=== PATIENT | female | born 1955 | race Caucasian/White ===

== ENCOUNTER 2018-12-25 16:27 | Emergency (ER) | payer MEDICARE, BC ==
[2018-12-25 16:38] VITALS: PULSE 87; RESP 16; TEMP 99.3
[2018-12-25 16:41] VITALS: BP 168/94
--- NOTE | 2018-12-25 17:06 | ED ---
General Adult HPI - General Chief complaint: Eye Problems Stated complaint: Blood in eye Time Seen by Provider: 12/25/18 16:35 Source: patient, EMS, RN notes reviewed, old records reviewed Mode of arrival: EMS Limitations: no limitations - History of Present Illness Initial comments: This is a 63-year-old female presents emergency room stating that she was recently diagnosed with pulmonary embolism and DVT. Patient states she's on Lovenox at home and today while doing some typical housework she started having bleeding in her eye which she stated started a couple days ago but today got really significant to the point where the conjunctiva seems to be swollen and it is noticeable every time she blinks and she can feel some pressure there. Patient denies any visual disturbance patient denies any headache patient denies any numbness weakness. Patient denies any other problems aside from the sub- conjunctival hemorrhage. - Related Data Allergies Allergy/AdvReac Type Severity Reaction Status Date / Time Iodinated Contrast Media Allergy Rash/Hives Verified 12/25/18 16:38 Review of Systems ROS Statement: Those systems with pertinent positive or pertinent negative responses have been documented in the HPI. ROS Other: All systems not noted in ROS Statement are negative. 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 Patient is in mild distress. EYES Patient's pupils are equal and round. Extraocular motion is intact. Patient has a large subconjunctival hemorrhage in the left eye. Patient has no blurred vision SKIN Unremarkable NEURO The patient is alert and oriented 3 PYSCH Patient has normal interpersonal interactions. MUSCULOSKELETAL All 4 times and full range of motion. Limitations: no limitations Course Vital Signs 12/25/18 12/25/18 16:33 16:41 Temperature 99.3 F Pulse Rate 87 Respiratory 16 Rate Blood Pressure 185/10 168/94 O2 Sat by Pulse 98 Oximetry Medical Decision Making - Medical Decision Making I spoke with Dr. boyd he instructed me to put an eye patch on the patient and have her wear it over night so that she has some pressure otherwise it doesn't continue to get worse and he she will follow-up with him on Friday. Disposition Clinical Impression: Subconjunctival hemorrhage Disposition: HOME SELF-CARE Instructions (If sedation given, give patient instructions): Subconjunctival Hemorrhage (ED) Additional Instructions: Patient should follow-up with Dr. boyd on Friday patient should return to emergency department if patient has any visual complaints or any new symptoms. Is patient prescribed a controlled substance at d/c from ED?: No Referrals: Satish Rayo MD [Primary Care Provider] - 1-2 days Time of Disposition: 17:07
[2018-12-25] MEDS ORDERED: ERYTHROMYCIN 5 MG/GM OPHTH OINT 3.5 GM TUBE LEFT EYE STA (17:12)
== END 2018-12-25 17:35 | disposition home or self-care (01) ==
LOC: EC 16:27
DX: H11.32 Conjunctival hemorrhage, left eye (principal); Z91.041 Radiographic dye allergy status
CPT/HCPCS: 99284

== ENCOUNTER 2019-02-08 11:27 | Emergency (ER) | payer MEDICARE, BC ==
[2019-02-08 11:36] VITALS: RESP 18
[2019-02-08] MEDS ORDERED: SODIUM CHLORIDE 0.9% 500 ML 500 ML IV STA (11:54)
[2019-02-08] MEDS ORDERED: ONDANSETRON 4 MG/2 ML VIAL IVP STA (11:55)
[2019-02-08] MEDS ORDERED: MORPHINE SULFATE 4 MG/ML SYRINGE IVP STA (11:55)
--- NOTE | 2019-02-08 12:11 | ED ---
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 Patient is reporting frontal headache that has been present since wakening. She reports having headaches increasing in frequency over the last week. Patient states she took a Tylenol #4 this morning without relief. She is also reporting bilateral hand tingling. Denies any focal weakness. She denies blurred or double vision. Denies any nausea or vomiting. Patient is currently receiving anticoagulation after having a thrombus to a vessel in her brain. She denies any recent fall or head injury. She denies fever or chills. Patient denies any recent rash, shortness breath, chest pain, abdominal pain, diarrhea, constipation, back pain, dizziness, weakness, hematuria, dysuria, urinary urgency, urinary frequency, or any other complaints. - Related Data Allergies Allergy/AdvReac Type Severity Reaction Status Date / Time Iodinated Contrast Media Allergy Rash/Hives Verified 12/25/18 16:38 Review of Systems ROS Statement: Those systems with pertinent positive or pertinent negative responses have been documented in the HPI. ROS Other: All systems not noted in ROS Statement are negative. Past Medical History Past Medical History: Hyperlipidemia, Hypertension, Pulmonary Embolus (PE) Additional Past Medical History / Comment(s): Stage 4 Melanoma, 1 seizure (tumor in brain) History of Any Multi-Drug Resistant Organisms: None Reported Past Surgical History: Adenoidectomy, Section, Orthopedic Surgery, Tonsillectomy Additional Past Surgical History / Comment(s): Brain surgery, lymph nodes removed right groin, Past Psychological History: No Psychological Hx Reported Smoking Status: Never smoker Past Alcohol Use History: None Reported Past Drug Use History: None Reported General Exam Limitations: no limitations General appearance: alert, in no apparent distress, other (This is a well- developed, well-nourished adult female patient in mild distress related to pain. Vital signs upon presentation are temperature 98.3F, pulse 87, respirations 18, blood pressure 141/76, pulse ox 100% on room air.) Eye exam: Present: normal appearance, PERRL, EOMI. Absent: scleral icterus, conjunctival injection, nystagmus, periorbital swelling ENT exam: Present: normal exam, normal oropharynx, mucous membranes moist Respiratory exam: Present: normal lung sounds bilaterally. Absent: respiratory distress, wheezes, rales, rhonchi, stridor Cardiovascular Exam: Present: regular rate, normal rhythm, normal heart sounds. Absent: systolic murmur, diastolic murmur, rubs, gallop, clicks GI/Abdominal exam: Present: soft, normal bowel sounds. Absent: distended, tenderness, guarding, rebound, rigid Extremities exam: Present: normal inspection, full ROM, normal capillary refill. Absent: tenderness, pedal edema, joint swelling, calf tenderness Neurological exam: Present: alert, oriented X3, CN II-XII intact Expanded Speech: Present: expressive aphasia Cranial nerves: EOM's Intact: Normal, Tongue Deviation: Normal, Nystagmus: Normal Motor strength exam: RUE: 5, LUE: 5, RLE: 5, LLE: 5 Eye Response: (4) open spontaneously Motor Response: (6) obeys commands Verbal Response: (4) confused conversation Sahra Total: 14 Psychiatric exam: Present: normal affect, normal mood Skin exam: Present: warm, dry, intact, normal color. Absent: rash Course Vital Signs 02/08/19 11:31 Temperature 98.3 F Pulse Rate 87 Respiratory 18 Rate Blood Pressure 141/76 O2 Sat by Pulse 100 Oximetry Medical Decision Making - Medical Decision Making 63-year-old female patient with past medical history significant for CVA, stage IV melanoma with metastasis to the brain presents to the emergency department today for evaluation of severe headache and expressive aphasia. Physical examination is otherwise unremarkable. Patient is able to communicate however some words are replaced and mixed up. She has no focal weakness. Lungs are clear to auscultation. Labs reviewed and are unremarkable. CT brain was obtained and shows evidence for hyperdense focus to the left parietal lobe concerning for metastatic melanoma. With current symptoms are is concerned for stroke, onset is unclear. She has received treatment at [facility] with Dr. Morales oncology and Dr. Salcedo neurosurgery. Family is requesting that she be transferred there for further evaluation. I did discuss findings, results, and plan with the family, they're agreeable. - Lab Data Result diagrams: 02/08/19 12:31 02/08/19 12:31 Lab Results 02/08/19 02/08/19 02/08/19 Range/Units 12:31 12:31 12:31 WBC 5.8 (3.8-10.6) k/uL RBC 4.50 (3.80-5.40) m/uL Hgb 14.1 (11.4-16.0) gm/dL Hct 39.0 (34.0-46.0) % MCV 86.6 (80.0-100.0) fL MCH 31.3 (25.0-35.0) pg MCHC 36.1 (31.0-37.0) g/dL RDW 13.4 (11.5-15.5) % Plt Count 142 L (150-450) k/uL Neutrophils % 71 % Lymphocytes % 20 % Monocytes % 6 % Eosinophils % 1 % Basophils % 0 % Neutrophils # 4.1 (1.3-7.7) k/uL Lymphocytes # 1.1 (1.0-4.8) k/uL Monocytes # 0.4 (0-1.0) k/uL Eosinophils # 0.1 (0-0.7) k/uL Basophils # 0.0 (0-0.2) k/uL Hyperchromasia Slight PT 10.1 (9.0-12.0) sec INR 0.9 (<1.2) APTT 23.7 (22.0-30.0) sec Sodium 138 (137-145) mmol/L Potassium 3.8 (3.5-5.1) mmol/L Chloride 104 (98-107) mmol/L Carbon Dioxide 24 (22-30) mmol/L Anion Gap 10 mmol/L BUN 18 H (7-17) mg/dL Creatinine 0.78 (0.52-1.04) mg/dL Est GFR (CKD-EPI)AfAm >90 (>60 ml/min/1.73 sqM) Est GFR (CKD-EPI)NonAf 82 (>60 ml/min/1.73 sqM) Glucose 134 H (74-99) mg/dL Calcium 10.0 (8.4-10.2) mg/dL Total Bilirubin 0.7 (0.2-1.3) mg/dL AST 29 (14-36) U/L ALT 19 (4-34) U/L Alkaline Phosphatase 85 (38-126) U/L Troponin I (0.000-0.034) ng/mL Total Protein 6.5 (6.3-8.2) g/dL Albumin 4.1 (3.5-5.0) g/dL 02/08/19 Range/Units 12:31 WBC (3.8-10.6) k/uL RBC (3.80-5.40) m/uL Hgb (11.4-16.0) gm/dL Hct (34.0-46.0) % MCV (80.0-100.0) fL MCH (25.0-35.0) pg MCHC (31.0-37.0) g/dL RDW (11.5-15.5) % Plt Count (150-450) k/uL Neutrophils % % Lymphocytes % % Monocytes % % Eosinophils % % Basophils % % Neutrophils # (1.3-7.7) k/uL Lymphocytes # (1.0-4.8) k/uL Monocytes # (0-1.0) k/uL Eosinophils # (0-0.7) k/uL Basophils # (0-0.2) k/uL Hyperchromasia PT (9.0-12.0) sec INR (<1.2) APTT (22.0-30.0) sec Sodium (137-145) mmol/L Potassium (3.5-5.1) mmol/L Chloride (98-107) mmol/L Carbon Dioxide (22-30) mmol/L Anion Gap mmol/L BUN (7-17) mg/dL Creatinine (0.52-1.04) mg/dL Est GFR (CKD-EPI)AfAm (>60 ml/min/1.73 sqM) Est GFR (CKD-EPI)NonAf (>60 ml/min/1.73 sqM) Glucose (74-99) mg/dL Calcium (8.4-10.2) mg/dL Total Bilirubin (0.2-1.3) mg/dL AST (14-36) U/L ALT (4-34) U/L Alkaline Phosphatase (38-126) U/L Troponin I <0.012 (0.000-0.034) ng/mL Total Protein (6.3-8.2) g/dL Albumin (3.5-5.0) g/dL - EKG Data -: EKG Interpreted by Mi EKG Comments: EKG obtained at 1141 shows normal sinus rhythm. Ventricular rate is 83, DC interval 132, QRS duration 76, QT 404, QTC 474. No evidence of ST elevation or depression. - Radiology Data Radiology results: report reviewed, image reviewed CT brain without contrast is obtained. Report was reviewed in its entirety. Impression by Dr. Argueta shows 1.2 cm left parietal temporal peripheral hyperdense focus with surrounding hypodensity favoring metastatic melanoma given patient's history. Evidence of prior surgery with old right frontal lobe infarct. Background mild diffuse cerebral atrophy. Right calcified scalp lesion of uncertain etiology. Two-view x-ray of the chest is obtained. Report is reviewed in its entirety. Impression by Dr. Odom shows low lung volumes and linear left basilar subsegmental atelectasis. Disposition Clinical Impression: CVA (cerebral vascular accident), Expressive aphasia, Headache Disposition: OTHER INSTITUTION NOT DEFINED Condition: Serious Referrals: Satish Rayo MD [Primary Care Provider] - 1-2 days - Out of Hospital Transfer - Req. Specs Out of Hospital Transfer - Requested Specifics: Other Emergency Center ([facility])
--- NOTE | 2019-02-08 12:23 | CT ---
EXAMINATION TYPE: CT brain wo con for TPA DATE OF EXAM: 02/08/2019 HISTORY: Headache and altered mental status. History of melanoma, brain tumors and removal. CT DLP: 1243.4 mGycm. Automated Exposure Control for Dose Reduction was Utilized. TECHNIQUE: CT scan of the head is performed without contrast. COMPARISON: None. FINDINGS: Right frontal craniotomy changes. There is partially calcified or ossified right parietal l esion bulging the scalp with adjacent calvarial thickening along with soft tissue component along the periphery are no bony destruction. Areas of low attenuation high right frontal region that reflect o ld infarct. There is a hyperdense 1.2 cm left parietal temporal lesion with surrounding hypodensity f avoring metastatic melanoma given patient's history with adjacent vasogenic edema. No midline shift. From mild ventricular and sulcal prominence. Small mucous retention cysts and/or polyps in the bilat eral maxillary sinuses most prominent inferiorly. IMPRESSION: There is 1.2 cm left parietal temporal peripheral hyperdense focus with surrounding hypod ensity favoring metastatic melanoma given patient's history. Evidence of prior surgery with old right frontal lobe infarct. Background mild diffuse cerebral atrophy. Right parietal calcified scalp lesio n of uncertain etiology.
[2019-02-08 12:49] LABS: Basophils % (A) 0 %; Eosinophils # (A) 0.1 k/uL (0-0.7); Eosinophils % (A) 1 %; HGB 14.1 gm/dL (11.4-16.0); Hyperchromasia Slight; Lymphocytes # (A) 1.1 k/uL (1.0-4.8); Lymphocytes % (A) 20 %; MCH 31.3 pg (25.0-35.0); MCHC 36.1 g/dL (31.0-37.0); MCV 86.6 fL (80.0-100.0); Mean Platelet Volume 7.8; Monocytes # (A) 0.4 k/uL (0-1.0); Monocytes % (A) 6 %; Neutrophils # (A) 4.1 k/uL (1.3-7.7); Neutrophils % (A) 71 %; Platelet Count 142 k/uL (150-450); RDW 13.4 % (11.5-15.5); WBC 5.8 k/uL (3.8-10.6)
[2019-02-08 12:57] LABS: ALT 19 U/L (4-34); AST 29 U/L (14-36); African American GFR (CKD) >90 (>60 ml/min/1.73 sqM); Albumin 4.1 g/dL (3.5-5.0); Alkaline Phosphatase 85 U/L (38-126); Anion Gap 10 mmol/L; Blood Urea Nitrogen 18 mg/dL (7-17); Carbon Dioxide 24 mmol/L (22-30); Chloride 104 mmol/L (98-107); Glucose 134 mg/dL (74-99); Non-African American GFR(CKD) 82 (>60 ml/min/1.73 sqM); Potassium 3.8 mmol/L (3.5-5.1); Sodium 138 mmol/L (137-145); Total Bilirubin 0.7 mg/dL (0.2-1.3); Total Protein 6.5 g/dL (6.3-8.2)
[2019-02-08 13:08] LABS: INR 0.9 (<1.2); Partial Thromboplastin Time 23.7 sec (22.0-30.0); Prothrombin Time 10.1 sec (9.0-12.0)
--- NOTE | 2019-02-08 13:14 | XR ---
EXAMINATION TYPE: XR chest 2V DATE OF EXAM: 02/08/2019 COMPARISON: NONE HISTORY: Altered mental status and headache TECHNIQUE: Frontal and lateral views of the chest are obtained. FINDINGS: Low lung volumes. There is no focal air space opacity, pleural effusion, or pneumothorax se en. Linear left basilar atelectasis is seen. The cardiac silhouette size is within normal limits. T he osseous structures are intact. IMPRESSION: Low lung volumes and linear left basilar subsegmental atelectasis.
[2019-02-08] MEDS ORDERED: HYDROmorphone 1 MG/ML 1 ML SYRINGE IVP STA (13:52)
[2019-02-08 14:27] VITALS: BP 122/74
[2019-02-08 14:29] LABS: Appearance,Urine Clear (Clear); Bilirubin,Urine Negative (Negative); Blood,Urine Negative (Negative); Color,Urine Light Yellow; Glucose,Urine (UA) Negative (Negative); Ketones,Urine Trace (Negative); Leukocyte Esterase,Urine Negative (Negative); Nitrite,Urine Negative (Negative); PH, Urine 8.5 (5.0-8.0); Protein,Urine Negative (Negative); Specific Gravity,Urine 1.012 (1.001-1.035); Urobilinogen,Urine <2.0 mg/dL (<2.0)
[2019-02-08 15:54] VITALS: PULSE 92; TEMP 97.8
== END 2019-02-08 15:51 | disposition other institution (70) ==
LOC: EC 11:27
DX: I63.9 Cerebral infarction, unspecified (principal); R47.01 Aphasia; R51 Headache; C79.31 Secondary malignant neoplasm of brain; C43.9 Malignant melanoma of skin, unspecified; I10 Essential (primary) hypertension; Z86.711 Personal history of pulmonary embolism; Z91.041 Radiographic dye allergy status
CPT/HCPCS: 36415; 93005; 80053; 84484; 85025; 85610; 85730; 81003; 71046; 70450; 99285; 96374; 96361; J2270

== ENCOUNTER 2019-04-20 20:46 | Emergency (ER) | payer MEDICARE ==
[2019-04-20 20:58] VITALS: RESP 16; TEMP 98.3
--- NOTE | 2019-04-20 22:32 | CT ---
EXAMINATION TYPE: CT brain wo con DATE OF EXAM: 04/20/2019 COMPARISON: 02/08/2019 HISTORY: possible seizure, recent brain sx CT DLP: 1111.4 mGycm Automated exposure control for dose reduction was used. There is mild cerebral atrophy. There is white matter hypodensity left parietal lobe and also right p osterior frontal lobe. There is old apparent right posterior frontal cortical infarct. There is large calcified mass on the external table of the skull in the right posterior temporal region that measur es 5 x 3 cm. There is frontal craniotomy defect. There is left temporal craniotomy defect. There is 1 cm area of high attenuation consistent with focal hemorrhage left temporal lobe unchanged. There is no mass effect. There is no midline shift. IMPRESSION: Encephalomalacia right frontal lobe and left temporal lobe with previous surgery. Small area of high attenuation anterior lateral left temporal lobe that could be acute hemorrhage but is unchanged or sm aller than the CT scan of 02/08/2019. This could be developing calcification. No evidence of any new hemorrhage. Brain appears not significantly different than old CT scan.
[2019-04-20 22:48] LABS: INR 0.9 (<1.2); Prothrombin Time 9.4 sec (9.0-12.0)
[2019-04-20 23:00] LABS: Partial Thromboplastin Time 20.6 sec (22.0-30.0)
[2019-04-20 23:01] LABS: Basophils % (A) 0 %; Eosinophils # (A) 0.1 k/uL (0-0.7); Eosinophils % (A) 1 %; HCT 34.9 % (34.0-46.0); HGB 12.1 gm/dL (11.4-16.0); Lymphocytes % (A) 20 %; MCH 30.9 pg (25.0-35.0); MCHC 34.6 g/dL (31.0-37.0); MCV 89.4 fL (80.0-100.0); Mean Platelet Volume 7.7; Monocytes # (A) 0.3 k/uL (0-1.0); Monocytes % (A) 6 %; Neutrophils # (A) 3.7 k/uL (1.3-7.7); Neutrophils % (A) 70 %; RBC 3.91 m/uL (3.80-5.40); WBC 5.2 k/uL (3.8-10.6)
[2019-04-20 23:03] LABS: ALT 17 U/L (4-34); AST 21 U/L (14-36); African American GFR (CKD) >90 (>60 ml/min/1.73 sqM); Albumin 3.1 g/dL (3.5-5.0); Alkaline Phosphatase 72 U/L (38-126); Anion Gap 3 mmol/L; Blood Urea Nitrogen 19 mg/dL (7-17); Calcium 8.6 mg/dL (8.4-10.2); Carbon Dioxide 29 mmol/L (22-30); Chloride 101 mmol/L (98-107); Glucose 178 mg/dL (74-99); Non-African American GFR(CKD) >90 (>60 ml/min/1.73 sqM); Potassium 3.1 mmol/L (3.5-5.1); Sodium 133 mmol/L (137-145); Total Bilirubin 0.6 mg/dL (0.2-1.3); Total Protein 5.1 g/dL (6.3-8.2)
[2019-04-20 23:10] LABS: Platelet Count 70 k/uL (150-450)
[2019-04-20 23:17] VITALS: BP 125/72; PULSE 75
[2019-04-20] MEDS ORDERED: levETIRAcetam 500 MG TAB PO STA (23:20)
--- NOTE | 2019-04-21 00:08 | ED ---
General Adult HPI - General Chief complaint: Neuro Symptoms/Deficit Stated complaint: Facial twitch after fall Time Seen by Provider: 04/20/19 20:55 Source: patient, EMS Mode of arrival: EMS Limitations: no limitations - History of Present Illness Initial comments: The patient is a 63-year-old female with past medical history of metastatic melanoma to the brain who presents to the emergency department from [facility]. The patient was hospitalized at [facility] from April 01 through April 15. She had resection of her metastatic lesions that did have some bleeding adjacent to them on . Prior to the procedure she was hav ing focal seizures which involved twitching of her left upper extremity and a numbing sensation to her left face. Family reports that after she had a resection done on April 08, the seizures completely stopped. Then today the patient sustained a mechanical fall. She fell onto her left side. She denies any blunt head trauma. Ever since the episode this evening the patient began having recurrence of her seizures. She reports 6 of them at home. Each one lasts only minutes before it stops. There is no associated speech difficulties, visual changes. The patient does have some weakness to her left side which is chronic. She denies any new weakness. She denies any numbness or tingling in her left leg. Denies any headaches, fevers or chills. No nausea or vomiting. She takes Keppra for her seizures. States that she has not taken tonight's dose. There are no alleviating, precipitating or modifying factors - Related Data Home Medications Medication Instructions Recorded Confirmed Acetaminophen Tab [Tylenol] 650 mg PO Q4H PRN 04/20/19 04/20/19 Dexamethasone 1 mg PO Q48H 04/20/19 04/20/19 Dexamethasone [Hexadrol] See Taper PO DAILY 04/20/19 04/20/19 Insulin Glargine,Hum.rec.anlog 10 unit SQ HS 04/20/19 04/20/19 [Lantus Solostar] Insulin Lispro [Insulin Lispro See Protocol SQ AC-TID 04/20/19 04/20/19 Kwikpen U-100] Insulin Lispro [Insulin Lispro See Protocol SQ HS 04/20/19 04/20/19 Kwikpen U-100] Insulin Lispro [Insulin Lispro See Taper SQ TID@0700,1200,1700 04/20/19 04/20/19 Kwikpen U-100] NIFEdipine [NIFEdipine ER] 30 mg PO DAILY 04/20/19 04/20/19 Omeprazole 20 mg PO DAILY 04/20/19 04/20/19 Potassium Chloride ER [K-Dur 10] 20 meq PO DAILY 04/20/19 04/20/19 Sertraline HCl [Zoloft] 25 mg PO DAILY 04/20/19 04/20/19 Simvastatin [Zocor] 40 mg PO HS 04/20/19 04/20/19 Triamterene-Hctz 37.5-25Mg 1 cap PO DAILY 04/20/19 04/20/19 [Dyazide 37.5-25 Capsule] levETIRAcetam [Keppra] 2,000 mg PO BID 04/20/19 04/20/19 metFORMIN HCL [Glucophage] 500 mg PO BID@0800,1600 04/20/19 04/20/19 Allergies Allergy/AdvReac Type Severity Reaction Status Date / Time Iodinated Contrast Media Allergy Rash/Hives Verified 04/20/19 23:27 Review of Systems ROS Statement: Those systems with pertinent positive or pertinent negative responses have been documented in the HPI. ROS Other: All systems not noted in ROS Statement are negative. Past Medical History Past Medical History: Hyperlipidemia, Hypertension, Pulmonary Embolus (PE) Additional Past Medical History / Comment(s): Stage 4 Melanoma, 1 seizure (tumor in brain) History of Any Multi-Drug Resistant Organisms: None Reported Past Surgical History: Adenoidectomy, Section, Orthopedic Surgery, Tonsillectomy Additional Past Surgical History / Comment(s): Brain surgery, lymph nodes removed right groin, Past Psychological History: No Psychological Hx Reported Smoking Status: Never smoker Past Alcohol Use History: None Reported Past Drug Use History: None Reported General Exam Limitations: no limitations General appearance: alert, in no apparent distress Head exam: Present: atraumatic, normocephalic, normal inspection Eye exam: Present: normal appearance, PERRL, EOMI. Absent: scleral icterus, conjunctival injection, periorbital swelling ENT exam: Present: normal exam, mucous membranes moist Neck exam: Present: normal inspection. Absent: tenderness, meningismus, lymphadenopathy Respiratory exam: Present: normal lung sounds bilaterally. Absent: respiratory distress, wheezes, rales, rhonchi, stridor Cardiovascular Exam: Present: regular rate, normal rhythm, normal heart sounds. Absent: systolic murmur, diastolic murmur, rubs, gallop, clicks GI/Abdominal exam: Present: soft, normal bowel sounds. Absent: distended, tenderness, guarding, rebound, rigid Extremities exam: Present: normal capillary refill, other (4/5 strength in her left upper extremity. 5/5 in her right upper extremity. No tremor noted. Finger to nose is symmetric bilaterally. Pupils are equally round and reactive. No dysdiadochokinesia or no truncal ataxia. Patient does ambulate without ataxia). Absent: tenderness, pedal edema, joint swelling, calf tenderness Back exam: Present: normal inspection Neurological exam: Present: alert, oriented X3, CN II-XII intact Psychiatric exam: Present: normal affect, normal mood Skin exam: Present: warm, dry, intact, normal color. Absent: rash Course Vital Signs 04/20/19 04/20/19 20:51 23:16 Temperature 98.3 F Pulse Rate 72 75 Respiratory 16 16 Rate Blood Pressure 130/81 125/72 O2 Sat by Pulse 96 98 Oximetry Medical Decision Making - Medical Decision Making Upon arrival the patient was placed into room 8. A thorough history and physical exam was performed. Laboratory studies were conducted which demonstrated a white blood cell count of 5.2, hemoglobin 12.1. INR 0.9. Sodium mildly low at 133. Potassium 3.1. Glucose is 178. Troponin negative. CT of the patient's brain demonstrates encephalomalacia of the right frontal lobe and left temporal lobe with previous surgery. Small area of high attenuation anterior lateral left temporal lobe that could be acute hemorrhage but is unchanged her smaller than the CT on 02/08/2019. This could be developing pal pitation. No evidence of any new hemorrhage. Brain appears not significantly different than old CT. Old CT was performed prior to the patient's resection. I discussed this information with the patient. As I am concerned for repeat bleed, I did recommend transfer to a facility with neurosurgical capabilities. The patient is requesting to go back to [facility] as this was where her resection was performed. I called and discussed the case with Dr. Harrell who accepted transfer. The patient will go by EMS. She was transferred in stable condition - Lab Data Result diagrams: 04/20/19 22:13 04/20/19 22:13 Lab Results 04/20/19 04/20/19 04/20/19 Range/Units 22:13 22:13 22:13 WBC 5.2 (3.8-10.6) k/uL RBC 3.91 (3.80-5.40) m/uL Hgb 12.1 (11.4-16.0) gm/dL Hct 34.9 (34.0-46.0) % MCV 89.4 (80.0-100.0) fL MCH 30.9 (25.0-35.0) pg MCHC 34.6 (31.0-37.0) g/dL RDW 15.0 (11.5-15.5) % Plt Count 70 L (150-450) k/uL Neutrophils % 70 % Lymphocytes % 20 % Monocytes % 6 % Eosinophils % 1 % Basophils % 0 % Neutrophils # 3.7 (1.3-7.7) k/uL Lymphocytes # 1.0 (1.0-4.8) k/uL Monocytes # 0.3 (0-1.0) k/uL Eosinophils # 0.1 (0-0.7) k/uL Basophils # 0.0 (0-0.2) k/uL Manual Slide Review Performed PT 9.4 (9.0-12.0) sec INR 0.9 (<1.2) APTT 20.6 L (22.0-30.0) sec Sodium 133 L (137-145) mmol/L Potassium 3.1 L (3.5-5.1) mmol/L Chloride 101 (98-107) mmol/L Carbon Dioxide 29 (22-30) mmol/L Anion Gap 3 mmol/L BUN 19 H (7-17) mg/dL Creatinine 0.55 (0.52-1.04) mg/dL Est GFR (CKD-EPI)AfAm >90 (>60 ml/min/1.73 sqM) Est GFR (CKD-EPI)NonAf >90 (>60 ml/min/1.73 sqM) Glucose 178 H (74-99) mg/dL Calcium 8.6 (8.4-10.2) mg/dL Total Bilirubin 0.6 (0.2-1.3) mg/dL AST 21 (14-36) U/L ALT 17 (4-34) U/L Alkaline Phosphatase 72 (38-126) U/L Troponin I (0.000-0.034) ng/mL Total Protein 5.1 L (6.3-8.2) g/dL Albumin 3.1 L (3.5-5.0) g/dL 04/20/19 Range/Units 22:13 WBC (3.8-10.6) k/uL RBC (3.80-5.40) m/uL Hgb (11.4-16.0) gm/dL Hct (34.0-46.0) % MCV (80.0-100.0) fL MCH (25.0-35.0) pg MCHC (31.0-37.0) g/dL RDW (11.5-15.5) % Plt Count (150-450) k/uL Neutrophils % % Lymphocytes % % Monocytes % % Eosinophils % % Basophils % % Neutrophils # (1.3-7.7) k/uL Lymphocytes # (1.0-4.8) k/uL Monocytes # (0-1.0) k/uL Eosinophils # (0-0.7) k/uL Basophils # (0-0.2) k/uL Manual Slide Review PT (9.0-12.0) sec INR (<1.2) APTT (22.0-30.0) sec Sodium (137-145) mmol/L Potassium (3.5-5.1) mmol/L Chloride (98-107) mmol/L Carbon Dioxide (22-30) mmol/L Anion Gap mmol/L BUN (7-17) mg/dL Creatinine (0.52-1.04) mg/dL Est GFR (CKD-EPI)AfAm (>60 ml/min/1.73 sqM) Est GFR (CKD-EPI)NonAf (>60 ml/min/1.73 sqM) Glucose (74-99) mg/dL Calcium (8.4-10.2) mg/dL Total Bilirubin (0.2-1.3) mg/dL AST (14-36) U/L ALT (4-34) U/L Alkaline Phosphatase (38-126) U/L Troponin I <0.012 (0.000-0.034) ng/mL Total Protein (6.3-8.2) g/dL Albumin (3.5-5.0) g/dL Disposition Clinical Impression: Focal seizure, Metastatic melanoma Disposition: OTHER INSTITUTION NOT DEFINED Condition: Serious Is patient prescribed a controlled substance at d/c from ED?: No Referrals: Olga Lane MD [Primary Care Provider] - 1-2 days Time of Disposition: 00:08 - Out of Hospital Transfer - Req. Specs Out of Hospital Transfer - Requested Specifics: Other Emergency Center ([facility])
== END 2019-04-21 00:42 | disposition other institution (70) ==
LOC: EC 20:46
DX: C79.31 Secondary malignant neoplasm of brain (principal); G40.89 Other seizures; G93.89 Other specified disorders of brain; E87.1 Hypo-osmolality and hyponatremia; I10 Essential (primary) hypertension; E78.5 Hyperlipidemia, unspecified; Z98.890 Other specified postprocedural states; Z79.52 Long term (current) use of systemic steroids; Z79.4 Long term (current) use of insulin; Z79.899 Other long term (current) drug therapy; Z91.041 Radiographic dye allergy status
CPT/HCPCS: 36415; 70450; 80053; 84484; 85025; 85610; 85730; 99285

== ENCOUNTER 2019-06-03 06:27 | Emergency (ER) | payer MEDICARE ==
[2019-06-03] MEDS ORDERED: FAMOTIDINE 20 MG/2 ML VIAL IV STA (06:40)
[2019-06-03] MEDS ORDERED: diphenhydrAMINE 50 MG/ML 1 ML VIAL IVP STA (06:40)
[2019-06-03] MEDS ORDERED: methylPREDNISolone SOD SUCCI 125 MG/2 ML VIAL IV STA (06:40)
[2019-06-03 06:44] LABS: Glucose,Whole Blood 158 mg/dL (75-99)
--- NOTE | 2019-06-03 06:44 | ED ---
Neuro HPI - General Stated Complaint: Weakness Time Seen by Provider: 06/03/19 06:31 Source: patient, EMS Mode of arrival: EMS Limitations: altered mental status, physical limitation - History of Present Illness Is the patient presenting with stroke symptoms?: Yes Last Known Well Date: 06/02/19 Last Known Well Time: 21:00 Initial Comments: This is a 63-year-old female presents emergency department via EMS for strokelike symptoms. Patient complained of a headache last night in which she received acetaminophen per report. Patient normally is and O 4 and able to take care of herself. 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 Patient had surgery at [facility] in March and which she did have some bleeding related to this. Patient is found to have some aphasia, right arm weakness, right sided facial droop. Patient unable to provide much information at this time given patient's condition. Patient does have a known history of seizures in which he is on Keppra. She is unable to answer she had a fall. EMS states that her symptoms worsening since her arrival. Patient does have a history of some aphasia though that resolved per report. - Related Data Home Medications: Home Medications Medication Instructions Recorded Confirmed Acetaminophen Tab [Tylenol] 650 mg PO Q4H PRN 04/20/19 04/20/19 Dexamethasone 1 mg PO Q48H 04/20/19 04/20/19 Dexamethasone [Hexadrol] See Taper PO DAILY 04/20/19 04/20/19 Insulin Glargine,Hum.rec.anlog 10 unit SQ HS 04/20/19 04/20/19 [Lantus Solostar] Insulin Lispro [Insulin Lispro See Protocol SQ AC-TID 04/20/19 04/20/19 Kwikpen U-100] Insulin Lispro [Insulin Lispro See Protocol SQ HS 04/20/19 04/20/19 Kwikpen U-100] Insulin Lispro [Insulin Lispro See Taper SQ TID@0700,1200,1700 04/20/19 04/20/19 Kwikpen U-100] NIFEdipine [NIFEdipine ER] 30 mg PO DAILY 04/20/19 04/20/19 Omeprazole 20 mg PO DAILY 04/20/19 04/20/19 Potassium Chloride ER [K-Dur 10] 20 meq PO DAILY 04/20/19 04/20/19 Sertraline HCl [Zoloft] 25 mg PO DAILY 04/20/19 04/20/19 Simvastatin [Zocor] 40 mg PO HS 04/20/19 04/20/19 Triamterene-Hctz 37.5-25Mg 1 cap PO DAILY 04/20/19 04/20/19 [Dyazide 37.5-25 Capsule] levETIRAcetam [Keppra] 2,000 mg PO BID 04/20/19 04/20/19 metFORMIN HCL [Glucophage] 500 mg PO BID@0800,1600 04/20/19 04/20/19 Allergies/Adverse Reactions: Allergies Allergy/AdvReac Type Severity Reaction Status Date / Time Iodinated Contrast Media Allergy Rash/Hives Verified 04/20/19 23:27 Review of Systems ROS Statement: Those systems with pertinent positive or pertinent negative responses have been documented in the HPI. ROS Other: All systems not noted in ROS Statement are negative. General Exam Limitations: altered mental status, physical limitation General appearance: alert, in no apparent distress Head exam: Present: atraumatic, normocephalic, normal inspection Eye exam: Present: normal appearance, PERRL, EOMI. Absent: scleral icterus, conjunctival injection, periorbital swelling ENT exam: Present: mucous membranes moist, TM's normal bilaterally, normal external ear exam. Absent: normal exam, normal oropharynx (Right-sided facial droop) Neck exam: Present: normal inspection, full ROM. Absent: tenderness, meningismus, lymphadenopathy Respiratory exam: Present: normal lung sounds bilaterally. Absent: respiratory distress, wheezes, rales, rhonchi, stridor Cardiovascular Exam: Present: regular rate, normal rhythm, normal heart sounds. Absent: systolic murmur, diastolic murmur, rubs, gallop, clicks Extremities exam: Present: other (Right upper extremity weakness, right leg swelling noted pulses equal bilateral upper and lower) Neurological exam: Present: alert, motor sensory deficit, reflexes normal. Absent: oriented X3, CN II-XII intact Expanded Neurological exam: Present: expressive aphasia Patient oriented to: Present: person. Absent: place, time Speech: Present: expressive aphasia Cranial nerves: EOM's Intact: Normal Cerebellar function: Finger to Nose: Abnormal Right, Heel to [place]: Normal Upper motor neuron: [place] Neglect: Abnormal Right Motor strength exam: RUE: 2/, LUE: 5, RLE: 5, LLE: 5 Eye Response: (4) open spontaneously Motor Response: (6) obeys commands Verbal Response: (5) oriented [place] Total: 15 Skin exam: Present: warm, dry, intact, normal color. Absent: rash Stroke MDM - Lab Data Result diagrams: 06/03/19 07:24 06/03/19 07:24 Lab Results 06/03/19 06/03/19 06/03/19 Range/Units 06:39 07:24 07:24 WBC 7.1 (3.8-10.6) k/uL RBC 4.56 (3.80-5.40) m/uL Hgb 13.4 (11.4-16.0) gm/dL Hct 40.3 (34.0-46.0) % MCV 88.4 (80.0-100.0) fL MCH 29.5 (25.0-35.0) pg MCHC 33.3 (31.0-37.0) g/dL RDW 14.3 (11.5-15.5) % Plt Count 45 L (150-450) k/uL Neutrophils % 74 % Lymphocytes % 18 % Monocytes % 7 % Eosinophils % 1 % Basophils % 0 % Neutrophils # 5.2 (1.3-7.7) k/uL Lymphocytes # 1.2 (1.0-4.8) k/uL Monocytes # 0.5 (0-1.0) k/uL Eosinophils # 0.1 (0-0.7) k/uL Basophils # 0.0 (0-0.2) k/uL Manual Slide Review Performed Poikilocytosis Slight PT 9.8 (9.0-12.0) sec INR 0.9 (<1.2) APTT 19.5 L (22.0-30.0) sec Sodium (137-145) mmol/L Potassium (3.5-5.1) mmol/L Chloride (98-107) mmol/L Carbon Dioxide (22-30) mmol/L Anion Gap mmol/L BUN (7-17) mg/dL Creatinine (0.52-1.04) mg/dL Est GFR (CKD-EPI)AfAm (>60 ml/min/1.73 sqM) Est GFR (CKD-EPI)NonAf (>60 ml/min/1.73 sqM) Glucose (74-99) mg/dL POC Glucose (mg/dL) 158 H (75-99) mg/dL POC Glu Neuropsychology Division Chief Ilir Méndez A Calcium (8.4-10.2) mg/dL Total Bilirubin (0.2-1.3) mg/dL AST (14-36) U/L ALT (4-34) U/L Alkaline Phosphatase (38-126) U/L Troponin I (0.000-0.034) ng/mL Total Protein (6.3-8.2) g/dL Albumin (3.5-5.0) g/dL 06/03/19 06/03/19 Range/Units 07:24 07:24 WBC (3.8-10.6) k/uL RBC (3.80-5.40) m/uL Hgb (11.4-16.0) gm/dL Hct (34.0-46.0) % MCV (80.0-100.0) fL MCH (25.0-35.0) pg MCHC (31.0-37.0) g/dL RDW (11.5-15.5) % Plt Count (150-450) k/uL Neutrophils % % Lymphocytes % % Monocytes % % Eosinophils % % Basophils % % Neutrophils # (1.3-7.7) k/uL Lymphocytes # (1.0-4.8) k/uL Monocytes # (0-1.0) k/uL Eosinophils # (0-0.7) k/uL Basophils # (0-0.2) k/uL Manual Slide Review Poikilocytosis PT (9.0-12.0) sec INR (<1.2) APTT (22.0-30.0) sec Sodium 136 L (137-145) mmol/L Potassium 2.9 L (3.5-5.1) mmol/L Chloride 99 (98-107) mmol/L Carbon Dioxide 29 (22-30) mmol/L Anion Gap 8 mmol/L BUN 21 H (7-17) mg/dL Creatinine 0.66 (0.52-1.04) mg/dL Est GFR (CKD-EPI)AfAm >90 (>60 ml/min/1.73 sqM) Est GFR (CKD-EPI)NonAf >90 (>60 ml/min/1.73 sqM) Glucose 138 H (74-99) mg/dL POC Glucose (mg/dL) (75-99) mg/dL POC Glu Neuropsychology Division Chief ID Calcium 9.5 (8.4-10.2) mg/dL Total Bilirubin 0.6 (0.2-1.3) mg/dL AST 16 (14-36) U/L ALT 12 (4-34) U/L Alkaline Phosphatase 60 (38-126) U/L Troponin I <0.012 (0.000-0.034) ng/mL Total Protein 6.2 L (6.3-8.2) g/dL Albumin 3.8 (3.5-5.0) g/dL - NIH Stroke Scale 1a. Level of Consciousness: (0) alert 1b. LOC Questions: (2) answers no questions correctly 1c. LOC Commands: (1) performs 1 task correctly 2. Best Gaze: (0) normal 3. Visual: (0) no visual loss 4. Facial Palsy: (2) partial paralysis 5a. Motor Arm Left: (0) no drift 5b. Motor Arm Right: (3) no gravity effort 6a. Motor Leg Left: (0) no drift 6b. Motor Leg Right: (0) no drift 7. Limb Ataxia: (1) present 1 limb 8. Sensory: (0) normal 9. Best Language: (2) severe aphasia 10. Dysarthria: (0) normal 11. Extinction/Inattention: (0) no abnormality - Thrombolytic Inclusion/Exclusion Thrombolytic Exclusion Criteria: Symptom Onset > 4.5 Hours Thrombolytic Contraindications: Head Trauma in Past 3 Months, GI or Other Bleeding - Medical Decision Making 64-year-old female presented for strokelike symptoms. Patient's found to have a enlarging metastatic lesion with hemorrhage and edema. Patient does have right arm weakness, right facial droop and ultrasound aphasia. Patient will be transferred to [facility] for further treatment as she's had prior neurosurgery. Patient symptoms are not deteriorating, patient's condition is serious but stable condition at this time. Patient will transfer via EMS - EKG Data -: EKG Interpreted by 06/03/19 07:33 EKG performed at 17:16 normal sinus rhythm rate of 64 VA 132 QRS 78 QT/QTC 360/371 Past Medical History Past Medical History: Hyperlipidemia, Hypertension, Pulmonary Embolus (PE) Additional Past Medical History / Comment(s): Stage 4 Melanoma, 1 seizure (tumor in brain) History of Any Multi-Drug Resistant Organisms: None Reported Past Surgical History: Adenoidectomy, Section, Orthopedic Surgery, Ton sillectomy Additional Past Surgical History / Comment(s): Brain surgery, lymph nodes removed right groin, Past Psychological History: No Psychological Hx Reported Smoking Status: Never smoker Past Alcohol Use History: None Reported Past Drug Use History: None Reported Course Vital Signs 06/03/19 06/03/19 06/03/19 06:40 07:15 07:30 Temperature 98.1 F Pulse Rate 68 68 60 Respiratory 16 18 16 Rate Blood Pressure 149/122 162/85 152/84 O2 Sat by Pulse 100 98 99 Oximetry 06/03/19 06/03/19 07:45 08:14 Temperature Pulse Rate 77 72 Respiratory 18 16 Rate Blood Pressure 152/79 142/84 O2 Sat by Pulse 99 99 Oximetry - Reevaluation(s) Reevaluation #1: 06/03/19 07:09 CT results show evidence of left temporal hemorrhagic metastasis, [facility] is contacted at this time. Difficulty achieving IV access at this time, attending notified and SANITARIAN INSPECTOR contacted 06/03/19 07:10 Blood pressure is noted to be elevated, cardene is ordered 5mg per hour 06/03/19 07:11 Reevaluation #2: 06/03/19 07:29 I discussed the case with [facility] who accepts transfer. Patient is stable at this time. Patient will be transferred via EMS. Reevaluation #3: 06/03/19 07:43 Updated physician at [facility] regarding information provided by sister regarding she is receiving N-plate injections Critical Care Time Critical Care Time: Yes Total Critical Care Time: 35 Critical Care Time: Total of 35 minutes of critical care time were used initially evaluated the patient, reviewed past medical history, discussed the case with EMS. Patient had labs, CT ordered. Patient's found to have hemorrhagic metastasis and left temporal rolled. Patient was given 10 mg of Decadron for edema,, blood pressure control was ordered. I did discuss case with [facility] who accepts transfer. Patient be transferred via EMS in stable condition at this time. Disposition Clinical Impression: Melanoma metastatic to brain, Left temporal lobe hemorrhage, CVA (cerebral vascular accident), Thrombocytopenia Disposition: OTHER INSTITUTION NOT DEFINED Condition: Serious Referrals: Satish Rayo MD [Primary Care Provider] - 1-2 days Time of Disposition: 07:33 - Out of Hospital Transfer - Req. Specs Out of Hospital Transfer - Requested Specifics: Other Emergency Center ([facility])
--- NOTE | 2019-06-03 06:57 | CT ---
EXAM: CT Head Without Intravenous Contrast CLINICAL HISTORY: ITS.REASON CT Reason: Neuro deficit, acute, stroke suspected TECHNIQUE: Axial computed tomography images of the head/brain without intravenous contrast. CTDI is 49 mGy and DLP is 1184 mGy-cm. This CT exam was performed using one or more of the following dose reduction techniques: automated exposure control, adjustment of the mA and/or kV according to patient size, and/or use of iterative reconstruction technique. COMPARISON: 02/08/2019 FINDINGS: Brain: Redemonstration of encephalomalacia in the right frontal lobe. Previously seen left temporal lobe lesion is larger now measuring approximately 2.9 cm, previously 1.3 cm. There is surrounding edema. Ventricles: No hydrocephalus. Bones/joints: Left-sided craniotomy. 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 Soft tissues: Unremarkable. Mastoid air cells: Clear. IMPRESSION: Enlarging hemorrhagic metastasis in the left temporal lobe with surrounding vasogenic edema. Redemonstration of right parietal/occipital calvarial metastasis.
[2019-06-03 07:05] VITALS: TEMP 98.1
[2019-06-03] MEDS ORDERED: DEXAMETHASONE SOD PHOSPHATE 10 MG/ML 1 ML VIAL IV STA (07:08)
[2019-06-03] MEDS ORDERED: niCARdipine 20 MG in SODIUM CHLORIDE 0.9% 192 ML IV SCH (07:15)
[2019-06-03 07:34] LABS: Basophils % (A) 0 %; Eosinophils # (A) 0.1 k/uL (0-0.7); Eosinophils % (A) 1 %; HCT 40.3 % (34.0-46.0); HGB 13.4 gm/dL (11.4-16.0); Lymphocytes # (A) 1.2 k/uL (1.0-4.8); Lymphocytes % (A) 18 %; MCH 29.5 pg (25.0-35.0); MCHC 33.3 g/dL (31.0-37.0); MCV 88.4 fL (80.0-100.0); Mean Platelet Volume 10.8; Monocytes # (A) 0.5 k/uL (0-1.0); Monocytes % (A) 7 %; Neutrophils # (A) 5.2 k/uL (1.3-7.7); Neutrophils % (A) 74 %; Poikilocytosis Slight; RBC 4.56 m/uL (3.80-5.40); RDW 14.3 % (11.5-15.5); WBC 7.1 k/uL (3.8-10.6)
[2019-06-03 07:44] LABS: ALT 12 U/L (4-34); AST 16 U/L (14-36); African American GFR (CKD) >90 (>60 ml/min/1.73 sqM); Albumin 3.8 g/dL (3.5-5.0); Alkaline Phosphatase 60 U/L (38-126); Anion Gap 8 mmol/L; Blood Urea Nitrogen 21 mg/dL (7-17); Calcium 9.5 mg/dL (8.4-10.2); Carbon Dioxide 29 mmol/L (22-30); Chloride 99 mmol/L (98-107); Glucose 138 mg/dL (74-99); Non-African American GFR(CKD) >90 (>60 ml/min/1.73 sqM); Potassium 2.9 mmol/L (3.5-5.1); Sodium 136 mmol/L (137-145); Total Bilirubin 0.6 mg/dL (0.2-1.3); Total Protein 6.2 g/dL (6.3-8.2)
[2019-06-03 07:49] LABS: INR 0.9 (<1.2); Prothrombin Time 9.8 sec (9.0-12.0)
[2019-06-03 08:04] LABS: Partial Thromboplastin Time 19.5 sec (22.0-30.0)
[2019-06-03 08:06] LABS: Platelet Count 45 k/uL (150-450)
[2019-06-03 08:15] VITALS: BP 142/84; PULSE 72; RESP 16
== END 2019-06-03 08:31 | disposition other institution (70) ==
LOC: EC 06:27
DX: I61.1 Nontraumatic intracerebral hemorrhage in hemisphere, cortical (principal); C79.31 Secondary malignant neoplasm of brain; D69.6 Thrombocytopenia, unspecified; I10 Essential (primary) hypertension; R29.810 Facial weakness; R47.01 Aphasia; G83.21 Monoplegia of upper limb affecting right dominant side; C80.1 Malignant (primary) neoplasm, unspecified; E78.5 Hyperlipidemia, unspecified; Z91.041 Radiographic dye allergy status; Z79.899 Other long term (current) drug therapy; Z86.711 Personal history of pulmonary embolism; Z98.890 Other specified postprocedural states
CPT/HCPCS: 36415; 80053; 84484; 85025; 85610; 85730; 70450; 99291; 96365; 96375; J1100

== ENCOUNTER 2019-06-28 22:42 | Emergency (ER) | payer MEDICARE ==
--- NOTE | 2019-06-28 23:33 | CT ---
EXAMINATION TYPE: CT brain wo con DATE OF EXAM: 06/28/2019 COMPARISON: 06/03/2019 HISTORY: AMS CT DLP: 1117.4 mGycm Automated exposure control for dose reduction was used. There is rounded 5 cm mixed density high attenuation mass in the left temporal lobe. This is consiste nt with acute and chronic parenchymal hemorrhage. There is some mass effect upon the left lateral maynor tricle. There is mild shift of the third ventricle to the right side. There is white matter hypodensi ty surrounding the hemorrhagic mass consistent with edema. There is a 5.5 x 2 cm bony mass involving the outer table of the right occipital bone. Margins are well-defined. There is left temporal craniot sepideh defect. IMPRESSION: Large hemorrhagic mass in the left temporal lobe increased in size compared to old CT scan. Previous exam measures 5 x 2.5 cm and now measures 5 x 5 cm. Large bony tumor on the right occipital bone external table could be an exostosis or osteochondroma. Unchanged.
--- NOTE | 2019-06-29 00:06 | ED ---
General Adult HPI - General Chief complaint: Seizure Stated complaint: seizure Source: patient, family, EMS, RN notes reviewed, old records reviewed Mode of arrival: EMS Limitations: altered mental status - History of Present Illness Initial comments: 64-year-old female history of metastatic melanoma with recurrent brain metastases and intracranial hemorrhage presenting with seizure. Patient has known seizure disorder. She is currently on 4000 mg of Keppra daily as well as Vimpat. She has been compliant with her medications. She's on 12 mg of Decadron. She follows with [facility]. Patient has planned to go to adult foster care with hospice beginning tomorrow. She is a DO NOT RESUSCITATE. She had a 1 or 2 minute tonic-clonic seizure. She typically has focal seizures. Sister is at bedside was able to give a history. Patient has no complaints herself, no pain complaints. - Related Data Home Medications Medication Instructions Recorded Confirmed Acetaminophen Tab [Tylenol] 650 mg PO Q4H PRN 04/20/19 04/20/19 Dexamethasone 1 mg PO Q48H 04/20/19 04/20/19 Dexamethasone [Hexadrol] See Taper PO DAILY 04/20/19 04/20/19 Insulin Glargine,Hum.rec.anlog 10 unit SQ HS 04/20/19 04/20/19 [Lantus Solostar] Insulin Lispro [Insulin Lispro See Protocol SQ AC-TID 04/20/19 04/20/19 Kwikpen U-100] Insulin Lispro [Insulin Lispro See Protocol SQ HS 04/20/19 04/20/19 Kwikpen U-100] Insulin Lispro [Insulin Lispro See Taper SQ TID@0700,1200,1700 04/20/19 04/20/19 Kwikpen U-100] NIFEdipine [NIFEdipine ER] 30 mg PO DAILY 04/20/19 04/20/19 Omeprazole 20 mg PO DAILY 04/20/19 04/20/19 Potassium Chloride ER [K-Dur 10] 20 meq PO DAILY 04/20/19 04/20/19 Sertraline HCl [Zoloft] 25 mg PO DAILY 04/20/19 04/20/19 Simvastatin [Zocor] 40 mg PO HS 04/20/19 04/20/19 Triamterene-Hctz 37.5-25Mg 1 cap PO DAILY 04/20/19 04/20/19 [Dyazide 37.5-25 Capsule] levETIRAcetam [Keppra] 2,000 mg PO BID 04/20/19 04/20/19 metFORMIN HCL [Glucophage] 500 mg PO BID@0800,1600 04/20/19 04/20/19 Allergies Allergy/AdvReac Type Severity Reaction Status Date / Time Iodinated Contrast Media Allergy Rash/Hives Verified 04/20/19 23:27 Review of Systems ROS Statement: Those systems with pertinent positive or pertinent negative responses have been documented in the HPI. ROS Other: All systems not noted in ROS Statement are negative. Past Medical History Past Medical History: Hyperlipidemia, Hypertension, Pulmonary Embolus (PE) Additional Past Medical History / Comment(s): Stage 4 Melanoma, 1 seizure (tumor in brain) History of Any Multi-Drug Resistant Organisms: None Reported Past Surgical History: Adenoidectomy, Section, Orthopedic Surgery, Tonsillectomy Additional Past Surgical History / Comment(s): Brain surgery, lymph nodes removed right groin, Past Psychological History: No Psychological Hx Reported Smoking Status: Never smoker Past Alcohol Use History: None Reported Past Drug Use History: None Reported General Exam Limitations: altered mental status General appearance: alert, in no apparent distress Head exam: Present: atraumatic, normocephalic Eye exam: Present: normal appearance, PERRL ENT exam: Present: mucous membranes dry Neck exam: Present: normal inspection. Absent: tenderness, meningismus Respiratory exam: Present: normal lung sounds bilaterally. Absent: respiratory distress, wheezes Cardiovascular Exam: Present: regular rate, normal rhythm GI/Abdominal exam: Present: soft. Absent: distended, tenderness, guarding Extremities exam: Present: other (Right lower extremity lymphedema) Neurological exam: Present: alert. Absent: oriented X3 Skin exam: Present: warm, dry, intact Course Vital Signs 06/28/19 06/29/19 22:46 00:00 Temperature 98.2 F Pulse Rate 77 81 Respiratory 16 16 Rate Blood Pressure 178/100 171/96 O2 Sat by Pulse 98 97 Oximetry Medical Decision Making - Medical Decision Making 64-year-old female with tonic-clonic seizure, significant past medical history. Sister initially does want evaluation of seizure and given her history, head CT is performed which shows worsening hemorrhagic mass with vasogenic edema. Sr. and patient are informed of these results. They are planning on going to hospice care tomorrow. Patient is unable to ambulate secondary to generalized weakness, fatigue, morbidity. Sr. does request that the patient be admitted un [facility] tomorrow where she can be taken directly to her new residence where there is staff to provide assistance. She had presented to the emergency department at approximately 11 PM. Patient will be admitted for observation, awaiting placement tomorrow. Disposition Clinical Impression: Generalized seizure, Melanoma metastatic to brain, Left temporal lobe h emorrhage Disposition: ADMITTED IP TO THIS [facility] Condition: Stable Is patient prescribed a controlled substance at d/c from ED?: No Referrals: Satish Rayo MD [Primary Care Provider] - 1-2 days Decision to Admit Reason: Admit from EC Decision Date: 06/29/19 Decision Time: 00:06
[2019-06-29] MEDS ORDERED: MORPHINE SULFATE 4 MG/ML SYRINGE IVP STA (00:17)
[2019-06-29] MEDS ORDERED: ONDANSETRON 4 MG/2 ML VIAL IVP PRN (00:26)
[2019-06-29] MEDS ORDERED: HYDROmorphone 0.5 MG/0.5 ML SYRINGE IVP PRN (00:26)
[2019-06-29] MEDS ORDERED: LORazepam 2 MG/ML INJ IV PRN (00:26)
[2019-06-29] MEDS ORDERED: DEXAMETHASONE SOD PHOSPHATE 10 MG/ML 1 ML VIAL IV STA (00:26)
[2019-06-29] MEDS ORDERED: NALOXONE 0.4 MG/ML 1 ML VIAL IV PRN (00:26)
[2019-06-29] MEDS ORDERED: LORazepam 2 MG/ML INJ IV STA (00:54)
[2019-06-29] MEDS: HYDROmorphone 1 MG/ML 1 ML SYRINGE IVP PRN ×3 (03:11→16:20)
[2019-06-29 06:17] VITALS: BP 146/96; PULSE 75; RESP 16; TEMP 97.7
[2019-06-29] MEDS ORDERED: levETIRAcetam 500 MG TAB PO SCH (09:00)
--- NOTE | 2019-06-29 13:52 | P.HPIM ---
History of Present Illness H&P Date: 06/29/19 Chief Complaint: Seizure HISTORY AND PHYSICAL AND DISCHARGE SUMMARY: This is a 64-year-old female patient of Dr. Rayo with past medical history of stage IV melanoma with brain metastasis with intracranial hemorrhage, seizure disorder. Patient is currently on Keppra 2000 mg twice daily and simvastatin for seizure disorder as well as Decadron. She has follow-up with [facility]. Yesterday, patient's sister was making arrangements for her to go to [facility] with [facility] but the patient developed clonic tonic seizure that lasted 1-2 minutes and patient was brought into [facility] emergency center for evaluation. She was afebrile, initial blood pressure 178/100, heart rate 77, pulse ox 98% on room air. CAT scan of the brain revealed large hemorrhagic mass in the left temporal lobe increased in size compared to old CAT scan of June 02. The mass now measures 5 x 7 cm. Large bony tumor on the right occipital bone. Patient was given IV Decadron, IV Ativan and IV morphine. Patient is waiting for a bed in the [facility] floor. Review of Systems ROS unobtainable: due to mental status Past Medical History Past Medical History: Hyperlipidemia, Hypertension, Pulmonary Embolus (PE) Additional Past Medical History / Comment(s): Stage 4 Melanoma, 1 seizure (tumor in brain) History of Any Multi-Drug Resistant Organisms: None Reported Past Surgical History: Adenoidectomy, Section, Orthopedic Surgery, T onsillectomy Additional Past Surgical History / Comment(s): Brain surgery, lymph nodes removed right groin, Past Psychological History: No Psychological Hx Reported Smoking Status: Never smoker Past Alcohol Use History: None Reported Past Drug Use History: None Reported - Past Family History Father Additional Family Medical History / Comment(s): Father at age 84 from lung cancer with history of smoking. Mother Additional Family Medical History / Comment(s): Mother is alive at age 85 with hypertension. Brother(s) Additional Family Medical History / Comment(s): Patient has one brother with depression. Sister(s) Additional Family Medical History / Comment(s): Patient has 2 sisters with hypertension. Patient has one son with anxiety. Medications and Allergies Home Medications Medication Instructions Recorded Confirmed Type Dexamethasone 4 mg PO TID 04/20/19 06/29/19 History levETIRAcetam [Keppra] 2,000 mg PO BID 04/20/19 06/29/19 History Atropine Ophth Soln 1% 5Ml [Isopto 2 drops PO Q4HR PRN #1 bottle 06/29/19 Rx Atropine 1% 5Ml] LORazepam ORAL CONC [Ativan 2 mg PO Q4HR PRN #30 ml 06/29/19 Rx Intensol] Lacosamide [Vimpat] 150 mg PO BID 06/29/19 06/29/19 History MORPHINE ORAL ALEXUS CONC 20mg/mL 5 mg PO Q4H PRN #30 ml 06/29/19 Rx [Roxanol Oral Soln Conc 20MG/ML] Allergies Allergy/AdvReac Type Severity Reaction Status Date / Time Iodinated Contrast Media Allergy Rash/Hives Verified 06/29/19 09:38 Physical Exam Vitals: Vital Signs Temp Pulse Resp BP Pulse Ox 06/29/19 06:00 97.7 F 75 16 146/96 95 06/29/19 05:00 18 06/29/19 00:00 81 16 171/96 97 06/28/19 22:46 98.2 F 77 16 178/100 98 Intake and Output 06/28/19 06/29/19 06/29/19 22:59 06:59 14:59 Output Total 1100 Balance -1100 Output: Urine 1100 Straight 1100 Other: Weight 108.862 kg Gen: This is an obese 64-year-old female. Patient is resting on a stretcher. She appears to be in no acute distress. HEENT: Head is atraumatic, normocephalic. Pupils equal, round. Sclerae is anicteric. NECK: Supple. No JVD. No lymphadenopathy. No thyromegaly. LUNGS: Clear to auscultation. No wheezes or rhonchi. No intercostal retractions. HEART: Regular rate and rhythm. No murmur. ABDOMEN: Soft. Bowel sounds are present. No masses. No tenderness. EXTREMITIES: No pedal edema. No calf tenderness. NEUROLOGICAL: Patient is not awake, not alert and not oriented. Assessment and Plan Plan: 1. Tonic-clonic seizure with history of seizure disorder. Patient will continue on Keppra and from pad if she is able to take oral medications at the [facility]. 2. Melanoma with metastatic disease to the brain. 3. Hypertension. 4. Diabetes mellitus type 2. 5. Hyperlipidemia. 6. History of pulmonary embolism. 7. COVID-19 infection not suspected. No testing done. Discharge plan: [facility] Discharge Medication List Dexamethasone 4 mg PO TID 04/20/19 [History] levETIRAcetam [Keppra] 2,000 mg PO BID 04/20/19 [History] Atropine Ophth Soln 1% 5Ml [Isopto Atropine 1% 5Ml] 2 drops PO Q4HR PRN #1 bottle 06/29/19 [Rx] LORazepam ORAL CONC [Ativan Intensol] 2 mg PO Q4HR PRN #30 ml 06/29/19 [Rx] Lacosamide [Vimpat] 150 mg PO BID 06/29/19 [History] MORPHINE ORAL ALEXUS CONC 20mg/mL [Roxanol Oral Soln Conc 20MG/ML] 5 mg PO Q4H PRN #30 ml 06/29/19 [Rx] Impression and plan of care have been directed as dictated by the signing physician. Coreen Prince nurse practitioner acting as scribe for signing physician.
== END 2019-06-29 16:27 | disposition other institution (70) ==
LOC: EC 22:42 → 5NMEDONC 06-29 00:26 → UNDOADMIN 06-29 00:26 → EC 06-29 16:27
DX: Z03.818 Encounter for observation for suspected exposure to other biological agents ruled out (principal); G40.409 Other generalized epilepsy and epileptic syndromes, not intractable, without status epilepticus; C79.31 Secondary malignant neoplasm of brain; I61.1 Nontraumatic intracerebral hemorrhage in hemisphere, cortical; R53.1 Weakness; R53.83 Other fatigue; R69 Illness, unspecified; E11.9 Type 2 diabetes mellitus without complications; E78.5 Hyperlipidemia, unspecified; I10 Essential (primary) hypertension; Z79.4 Long term (current) use of insulin; Z79.899 Other long term (current) drug therapy; Z91.041 Radiographic dye allergy status; Z86.711 Personal history of pulmonary embolism; Z98.890 Other specified postprocedural states
CPT/HCPCS: 87635; 70450; 96374; 96375 ×3; 99285; J2060; J2270; J1100; J1170